=== PATIENT | male | born 1960 | race African-American/Black ===

== ENCOUNTER 2023-06-17 22:32 | Inpatient (IN) | payer OTHER ==
[~2023-06-17] VITALS: Ht 172.7 cm; Wt 89.8 kg
[~2023-06-17 22:32] MED LIST: ONDA-97 PO
[2023-06-17 23:48] LABS: BASOPHILS # (AUTO) 0.2 K/uL (0.0-0.2); BASOPHILS % (AUTO) 1.4 % (0.0-2.0); EOSINOPHILS % (AUTO) 0.2 % (0.0-6.0); HEMATOCRIT 40 % (39-51); HEMOGLOBIN 12.5 g/dL (13.5-17.5); LYMPHOCYTES # (AUTO) 0.6 K/uL (0.8-4.8); LYMPHOCYTES % (AUTO) 4.4 % (20.0-44.0); MEAN CORPUSCULAR HEMOGLOBIN 23 PG (26.0-33.0); MEAN CORPUSCULAR HGB CONC 31 g/dl (31.0-36.0); MEAN CORPUSCULAR VOLUME 73 fL (80-96); MONOCYTES # (AUTO) 0.7 K/uL (0.1-1.30); NEUTROPHILS # (AUTO) 12.6 K/uL (1.8-8.9); PLATELET COUNT (AUTO) 323 K/uL (150-450); RED BLOOD CELL COUNT(AUTO) 5.45 MIL/uL (4.5-6.0); RED CELL DISTRIBUTION WIDTH 14.3 % (11.5-15.0); WHITE BLOOD COUNT (AUTO) 14.1 K/uL (4.3-11.0)
[2023-06-17 23:57] LABS: CALCIUM, SERUM 9.4 mg/dL (8.5-10.1); CREATININE 1.1 mg/dL (0.6-1.3); POTASSIUM 4.8 mmol/L (3.5-5.1)
[2023-06-18 00:02] LABS: INR 1.05 (0.91-1.10); PARTIAL THROMBOPLASTIN TIME 32.4 SEC (24.3-34.3); PROTHROMBIN TIME 11.1 SECS (9.2-11.1)
[2023-06-18 00:53] LABS: APPEARANCE,URINE TURBID (CLEAR); COLOR,URINE RED (YELLOW)
[2023-06-18 01:07] LABS: BACTERIA,URINE Rare /HPF (None Seen); RBC,URINE TOO NUMEROUS TO COUN /HPF (0-2); SQUAMOUS EPITHELIAL CELL,UR Rare /HPF (None Seen); WBC,URINE TOO NUMEROUS TO COUN /HPF (0-3)
[2023-06-18] MEDS ORDERED: PANT40TA49 PO (02:49)
[2023-06-18] MEDS ORDERED: SITA100T PO (02:49)
[2023-06-18] MEDS ORDERED: GABA-532 PO (02:49)
[2023-06-18] MEDS ORDERED: OXCA300T15 PO (02:49)
[2023-06-18] MEDS ORDERED: PREG100C PO (02:49)
[2023-06-18] MEDS ORDERED: AMLO-213 PO (02:49)
[2023-06-18] MEDS ORDERED: MULT-447 PO (02:49)
[2023-06-18] MEDS ORDERED: SENN-18 PO (02:49)
[2023-06-18] MEDS ORDERED: SIMV-46 PO (02:49)
[2023-06-18] MEDS ORDERED: CRAN250C PO ×2 (02:49→08:23)
[2023-06-18] MEDS ORDERED: CALC500O PO (02:49)
[2023-06-18] MEDS ORDERED: METF-442 PO (02:49)
[2023-06-18] MEDS ORDERED: LEVE500T20 PO (02:49)
[2023-06-18] MEDS ORDERED: ASCO500T21 PO (02:49)
[2023-06-18] MEDS ORDERED: MORPHINE SULFATE INJ 4 MG/ML DISP.SYRIN IV PRN (05:00)
[2023-06-18] MEDS ORDERED: DEXTROSE 50%-WATER 50 ML DISP.SYRIN IV PRN ×2 (05:00→09:30)
[2023-06-18] MEDS ORDERED: MORPHINE SULFATE INJ 2 MG/ML DISP.SYRIN IV PRN (05:00)
[2023-06-18 08:00] VITALS: BP 131/85; TEMP 99; O2SAT 99
[2023-06-18] MEDS ORDERED: MULT-213 PO (08:23)
[2023-06-18] MEDS ORDERED: NA P133E RC (08:23)
[2023-06-18] MEDS ORDERED: ACET-637 PO (08:23)
[2023-06-18] MEDS ORDERED: SACC250C12 PO (08:23)
[2023-06-18] MEDS ORDERED: BISM-126 PO (08:23)
[2023-06-18] MEDS ORDERED: BACL10TA PO (08:23)
[2023-06-18] MEDS ORDERED: ACET325T53 PO (08:23)
[2023-06-18] MEDS ORDERED: BISA10SU11 RC (08:23)
[2023-06-18] MEDS ORDERED: MAGN400O6 PO (08:23)
[2023-06-18] MEDS ORDERED: IBUP-1957 PO (08:23)
[2023-06-18] MEDS ORDERED: AMIN30LI2 PO (08:23)
[2023-06-18] MEDS ORDERED: CALC-494 PO (08:23)
[2023-06-18] MEDS ORDERED: FLUT16SP BNOSTRILS (08:23)
[2023-06-18] MEDS ORDERED: LIDO700A30 TP (08:23)
[2023-06-18] MEDS ORDERED: ACET-73 PO (08:23)
[2023-06-18] MEDS ORDERED: OXCA600T8 PO (08:23)
[2023-06-18] MEDS ORDERED: INSU100V42 SQ (08:23)
[2023-06-18] MEDS ORDERED: LEVE100023 PO (08:23)
[2023-06-18] MEDS ORDERED: PANT20TA17 PO (08:23)
[2023-06-18] MEDS ORDERED: MAGNESIUM HYDROXIDE 30 ML UDC PO PRN (09:30)
[2023-06-18] MEDS ORDERED: *INSULIN REGULAR(HUMULIN R)HUM 100 UNIT/ML VIAL SQ PRN (09:30)
[2023-06-18] MEDS ORDERED: NA PHOS,M-B/NA PHOS,DI-BA 1 EA ENEMA RC PRN (09:30)
[2023-06-18] MEDS ORDERED: FLUTICASONE PROPIONATE 16 GM BOTTLE NS PRN (09:30)
[2023-06-18] MEDS ORDERED: ACETAMINOPHEN ES 500 MG TABLET PO PRN (09:30)
[2023-06-18] MEDS ORDERED: IBUPROFEN 400 MG TABLET PO PRN (09:30)
[2023-06-18] MEDS ORDERED: IBUPROFEN 800 MG TABLET PO PRN (09:30)
[2023-06-18] MEDS ORDERED: INSULIN REGULAR, HUMAN 100 UNIT/ML 3 ML VIAL SQ PRN (09:30)
[2023-06-18] MEDS ORDERED: BISACODYL SUPP (10 MG) 10 MG/SUPP.RECT SUPP.RECT RC PRN (09:30)
[2023-06-18] MEDS ORDERED: ONDANSETRON 4 MG TAB.RAPDIS PO PRN (09:30)
[2023-06-18] MEDS ORDERED: BACLOFEN (10 MG) 10 MG TABLET PO PRN (09:30)
[2023-06-18] MEDS: BLOOD SUGAR DIAGNOSTIC 1 EACH STRIP IN SCH (09:35)
[2023-06-18] MEDS: CEFTRIAXONE 1 G in IV D5W 50 ML IV SCH (10:07)
[2023-06-18] MEDS: BLOOD SUGAR DIAGNOSTIC 1 EACH STRIP VI SCH (12:06)
[2023-06-18] MEDS: OXCARBAZEPINE 150 MG TABLET PO SCH (12:15)
[2023-06-18] MEDS: GABAPENTIN 100 MG CAPSULE PO SCH (12:16)
[2023-06-18] MEDS: PREGABALIN 100 MG CAPSULE PO SCH (12:16)
[2023-06-18] MEDS: LEVETIRACETAM (250 MG) 250 MG TABLET PO SCH (12:16)
[2023-06-18 16:00] VITALS: BP 120/76; TEMP 99.9; O2SAT 99
[2023-06-18] MEDS: METFORMIN 500 MG TABLET PO SCH (17:13)
[2023-06-18] MEDS: INSULIN REGULAR, HUMAN 100 UNIT/ML 3 ML VIAL SQ PRN (18:30)
[2023-06-18] MEDS: ACETAMINOPHEN 325 MG TABLET PO PRN (18:42)
[2023-06-18 20:00] VITALS: BP 116/72; TEMP 97.3; O2SAT 98
[2023-06-18] MEDS: SENNOSIDES 8.6 MG TABLET PO SCH (21:58)
[2023-06-18] MEDS: SIMVASTATIN 20 MG TABLET PO SCH (21:58)
[2023-06-19 04:00] VITALS: BP 125/95; TEMP 98.2; O2SAT 98
[2023-06-19] MEDS: PANTOPRAZOLE 40 MG TABLET.DR PO SCH (07:42)
[2023-06-19] MEDS: MULTIVITAMIN/LUTEIN/MINERALS 1 TAB PO SCH (08:27)
[2023-06-19 08:28] VITALS: BP 120/96
[2023-06-19] MEDS: AMLODIPINE BESYLATE 10 MG TABLET PO SCH (08:28)
[2023-06-19] MEDS: ASCORBIC ACID 500 MG TABLET PO SCH (08:28)
[2023-06-19] MEDS: ACIDOPHILUS/BULGARICUS 1 EACH TAB.CHEW PO SCH (08:28)
[2023-06-19] MEDS: ACETAMINOPHEN ES 500 MG TABLET PO SCH (08:29)
[2023-06-19] MEDS: LINAGLIPTIN 5 MG TABLET PO SCH (08:29)
[2023-06-19] MEDS: LIDOCAINE 5% (PATCH) 1 EA PATCH TP SCH (08:29)
[2023-06-19] MEDS: PROSOURCE / PROSTAT (PYXIS) 30 ML UDC PO SCH (08:30)
[2023-06-19] MEDS ORDERED: CEPH500C2 PO (08:46)
[2023-06-19] MEDS ORDERED: Medication Not On Formulary EA (Cranberry Extract (Cranberry) 250 MG) PO SCH (09:00)
[2023-06-19] MEDS: CALCIUM CARBONATE 500 MG TAB.CHEW PO PRN (13:56)
[2023-06-19] MEDS: ONDANSETRON HCL/PF 4 MG/2 ML VIAL IV PRN (13:56)
== END 2023-06-19 16:27 | DRG 699 ==
LOC: ER 22:39 → TELE1 06-18 03:08 → MEDSG1 06-18 03:56
PROVIDERS: ADMIT Internal Medicine; ATTEND Internal Medicine
DX: T83.83XA Hemorrhage due to genitourinary prosthetic devices, implants and grafts, initial encounter (principal); G82.20 Paraplegia, unspecified; N39.0 Urinary tract infection, site not specified; Y84.8 Other medical procedures as the cause of abnormal reaction of the patient, or of later complication, without mention of misadventure at the time of the procedure; Y92.129 Unspecified place in nursing home as the place of occurrence of the external cause; K21.9 Gastro-esophageal reflux disease without esophagitis; G35 Multiple sclerosis; E11.42 Type 2 diabetes mellitus with diabetic polyneuropathy; E78.5 Hyperlipidemia, unspecified; I10 Essential (primary) hypertension; R13.10 Dysphagia, unspecified; Z20.822 Contact with and (suspected) exposure to COVID-19; Z79.84 Long term (current) use of oral hypoglycemic drugs; R33.8 Other retention of urine; N31.9 Neuromuscular dysfunction of bladder, unspecified; Z79.4 Long term (current) use of insulin; N40.1 Benign prostatic hyperplasia with lower urinary tract symptoms
CPT/HCPCS: 36415; 80048-TC; 81001; 82962-TC; 85025-TC; 85730-TC; 87081-TC; A4217; G0378; J0696; J1815; J2405; J7060